=== PATIENT | female | born 1945 | race Caucasian/White ===

== ENCOUNTER → 2017-02-22 | Outpatient (CLI) | payer OTHER, BC ==
[2017-02-22 12:39] LABS: ALT/SGPT 22 U/L (12-78); AST/SGOT 11 U/L (15-37); BLOOD UREA NITROGEN 14 mg/dl (7-18); BUN/CREATININE RATIO 14.6 (10-20); CALCIUM 9.5 mg/dl (8.5-10.1); CARBON DIOXIDE 27 mmol/L (21-32); CHLORIDE 107 mmol/L (98-107); CREATININE 0.96 mg/dl (0.60-1.20); GLUCOSE 101 mg/dl (70-99); POTASSIUM 4.3 mmol/L (3.5-5.1); SODIUM 141 mmol/L (136-145)
[2017-02-22 12:42] LABS: ALB/GLOB RATIO 1.2 (0.9-2); ALKALINE PHOSPHATASE 83 U/L (45-117); CHOLESTEROL 150 mg/dl (0-200); CHOLESTEROL/HDL RATIO 3.4; HDL CHOLESTEROL 44 mg/dl; LDL CHOLESTEROL CALCULATED 65 mg/dl; TRIGLYCERIDES 206 mg/dl (0-150); VERY LOW DENSITY LIPOPROT CALC 41 mg/dl
[2017-02-22 13:03] LABS: RATIO 17.9 mcg/mg (0-30.0)
[2017-02-22 13:09] LABS: ESTIMATED AVERAGE GLUCOSE 134 mg/dl; HA1C FLAG Normal (Normal)
== END | disposition home or self-care (01) ==
LOC: C.LABPVFM 08:52
PROVIDERS: ATTEND Family Medicine
DX: I10 Essential (primary) hypertension (principal); E78.5 Hyperlipidemia, unspecified; E11.9 Type 2 diabetes mellitus without complications; E55.9 Vitamin D deficiency, unspecified; F32.9 Major depressive disorder, single episode, unspecified

== ENCOUNTER → 2018-02-27 | Outpatient (CLI) | payer OTHER, BC ==
[2018-02-27 13:27] LABS: HEMOGLOBIN A1C 6.4 % (4.5-5.6)
[2018-02-27 13:39] LABS: ALBUMIN 3.6 gm/dl (3.4-5.0); ALT/SGPT 17 U/L (12-78); AST/SGOT 12 U/L (15-37); CALCIUM 9.2 mg/dl (8.5-10.1); CARBON DIOXIDE 26 mmol/L (21-32); CREATININE 0.98 mg/dl (0.60-1.20); GLUCOSE 115 mg/dl (70-99); SODIUM 139 mmol/L (136-145)
[2018-02-27 13:42] LABS: ALKALINE PHOSPHATASE 90 U/L (45-117); CHOLESTEROL 143 mg/dl (0-200); LDL CHOLESTEROL CALCULATED 63 mg/dl; TOTAL PROTEIN 6.9 gm/dl (6.4-8.2)
[2018-02-27 13:51] LABS: BLOOD UREA NITROGEN 13 mg/dl (7-18)
== END | disposition home or self-care (01) ==
LOC: C.LABPVFM 08:24
PROVIDERS: ATTEND Family Medicine
DX: I10 Essential (primary) hypertension (principal); E78.5 Hyperlipidemia, unspecified; E11.9 Type 2 diabetes mellitus without complications; M81.0 Age-related osteoporosis without current pathological fracture; F32.9 Major depressive disorder, single episode, unspecified; E80.6 Other disorders of bilirubin metabolism

== ENCOUNTER → 2018-03-08 | Outpatient (CLI) | payer OTHER, BC ==
--- NOTE | 2018-03-08 14:59 | DIAGNOSTIC IMAGING REPORT ---
L KNEE 3 VIEWS CLINICAL HISTORY: LEFT KNEE PAIN pain COMPARISON: None. DISCUSSION: Moderate degenerative change medial joint compartment. Minimal degenerative changes lateral and patellofemoral joint compartments. No significant joint effusion. Bony mineralization is within normal limits. There is no evidence for soft tissue swelling. IMPRESSION: Minimal degenerative change. No acute process. No significant joint effusion. The above report was generated using voice recognition software. It may contain grammatical, syntax or spelling errors. Electronically signed by: Tadeo Decker M.D. 03/08/2018 2:58 PM Dictated Date/Time: 03/08/2018 2:57 PM
== END | disposition home or self-care (01) ==
LOC: C.RADPV 14:42
PROVIDERS: ATTEND Nurse Practitioner Family
DX: M25.562 Pain in left knee (principal)

== ENCOUNTER 2023-02-08 06:22 | Observation (INO) ==
--- NOTE | 2023-02-01 12:24 | Anesthesiology Consultation ---
Date of Service February 01, 2023 Assessment & Plan (1) Encounter for pre-operative examination: Chart Review Chart Review: Pending: Refer to Additional Notes / Consult section (pending response from cardio re: final cardio clearance ) and Patient NOT seen in Pre Admission Testing - Awaiting response from cardio via workload note re: previous stress test and if patient is acceptable risk for for surgery - Check BSG AM DOS - Pt is NOT an Outpatient Joint candidate -COVID screening: Per PAT nursing assessment on 02/01/23. No known COVID-19 positive contacts or current COVID-19 related symptoms. Travel screen negative. Patient vaccinated for Covid. At surgeon discretion if preop Covid testing being done. Pt seen by cardio 06/28/22= presents for preop CV evaluation prior to right TKA. Currently scheduled for 07/02/22 but patient plans to reschedule until she recovers from recent Covid infection. Pt has had increased SOB/VEGA since shaun Covid. Was have increased VEGA prior to Covid infection. Pt does not appear hypervolemic on exam today. Given her SOB, CV risk factors and upcoming surgery- it is recommended she under nuclear stress test for further evaluation. Pending the results of the stress test, patient is at an acceptable risk to proceed with knee replacement. History Surgery Operation Date: 02/08/23 08:50 Proposed Procedures p Right Total Knee Arthroplasty - [facility] Post MD Height/Weight Height: 4 ft 11 in Weight: 68.039 kg Allergies Allergy/AdvReac Type Severity Reaction Status Date / Time No Known Drug Allergies Allergy Unknown Verified 02/01/23 11:23 Medications Home Medications Medication Instructions Recorded Confirmed Last Taken blood sugar diagnostic (OneTouch #10 ea 05/16/19 12/09/22 Unknown Ultra Blue Test Strip) lancets #50 ea 05/16/19 12/09/22 Unknown cyanocobalamin (vitamin B-12) 2,500 mcg PO QAM 09/19/19 02/01/23 07/14/21 2,500 mcg tablet cholecalciferol (vitamin D3) 25 1,000 units PO QAM 05/20/21 02/01/23 07/14/21 mcg (1,000 unit) capsule ibuprofen 200 mg tablet 200 mg PO Q6H PRN Pain 06/11/22 02/01/23 Unknown phenylephrine HCl 0.5 % nasal spray 1 spray intranasal Q8H PRN 06/11/22 02/01/23 Unknown Congestion glipizide 5 mg tablet, extended 5 mg PO QAM #90 tabs 01/26/23 02/01/23 Unknown release 24 hr metformin 1,000 mg tablet 1,000 mg PO BID #180 tabs 01/26/23 02/01/23 Unknown simvastatin 80 mg tablet 80 mg PO QPM #90 tabs 01/26/23 02/01/23 Unknown lisinopril 20 mg tablet 20 mg PO QAM 02/01/23 02/01/23 Unknown Past Medical History Medical History (Updated 02/01/23 @ 12:32 by Lona Mayberry PA-C) DM type 2 (diabetes mellitus, type 2) Hearing deficit BL LIM History of COVID-19 06/15/22>STILL HAS SOME TASTE/SMELL PROBLEMS HLD (hyperlipidemia) HTN (hypertension) LBBB (left bundle branch block) Per records- pt unaware LBBB present since at least 2004 per review of previous EKGs Osteoporosis Past Family History Family History Father Arthritis Heart problem Mother Heart problem Other No family history of adverse response to anesthesia No family history of bleeding disorder Denies family history of Ovarian cancer Prostate cancer Hearing loss Heart disease Myocardial infarction Breast cancer Colorectal cancer Cancer Hypertension Stroke Asthma Past Surgical History Surgical History History of arthroscopy of right knee History of benign breast biopsy History of cataract surgery LEFT/RT History of colonoscopy History of tooth extraction History of vocal cord polypectomy Hx of carpal tunnel repair Rt Status post left breast lumpectomy (07/15/21) Left Breast Lumpectomy with Localization, Wire Dr. King 07-15-2021: LMA#4. Pt denies limb restriction. (benign) Social History Smoking Status: Former smoker tobacco type: cigarettes Do You Dip or Chew Tobacco: No Smoking End Date: 20+ YEARS AGO Hx Alcohol Use: Yes Alcohol type: beer and wine alcohol intake frequency: holidays/special occasions only substance use type: does not use Lab Results Anesthesia Preop Results Results Anesthesia Widget: WBC 8.24 K/ul (4.8-10.8) 01/06/23 Hgb 13.7 g/dl (12.0-16.0) 01/06/23 Hct 40.1 % (37.0-47.0) 01/06/23 Plt 280 K/uL (130-400) 01/06/23 Na 141 mmol/L (136-145) 01/06/23 K 3.9 mmol/L (3.5-5.1) 01/06/23 Cl 107 mmol/L (98-107) 01/06/23 CO2 27 mmol/L (21-32) 01/06/23 BUN 17 mg/dl (6-23) 01/06/23 Creat 0.90 mg/dl (0.6-1.2) 01/06/23 Glucose Level 109 mg/dl (70-99(Fasting)) H 01/06/23 PT 9.9 Seconds (9.0-12.0) 01/06/23 PTT 25.6 Seconds (21.0-31.0) 01/06/23 INR 0.9 (0.9-1.1) 01/06/23 HA1c 6.1 % (4.5-5.6) H 01/06/23 Blood Type A Positive 01/06/23 Antibody Screen NEGATIVE 01/06/23 Testing Electrocardiogram Date: 06/15/22 Sinus tachycardia, rate 109 bpm Left axis deviation LBBB Chest X-Ray Date: 06/15/22 *1view* There are low lung volumes. The cardiac silhouette is borderline enlarged. Is mildly tortuous thoracic aorta. No pleural effusions. No pneumothorax. A few b ibasilar linear densities consistent with subsegmental atelectasis. Otherwise, no focal lung consolidations to suggest pneumonia. No evidence for pulmonary edema. There is a mildly tortuous thoracic aorta. IMPRESSION: 1. Low lung volumes with a few bibasilar linear densities likely representing subsegmental atelectasis. 2. Otherwise, no focal lung consolidations to suggest pneumonia. Stress Test Date: 07/23/22 Type: nuclear Rest and stress myocardial perfusion imaging findings: 1. Mild breast attenuation, increased liver and gallbladder uptake. Good quality study. 2. Gated MPI demonstrates dyskinesis of the entire septal wall. Mild hypokinesis of the apex. The calculated EF likely overestimates true EF. Calculated EF 65%. 3. There is a medium size, mild to moderate intensity, fixed MPI defect involving the entire apex, distal anteroseptal, and distal inferior myocardium. These findings suggest prior myocardial infarction without significant adrian- infarct ischemia. 4. Moderately abnormal study. Low risk for ischemia. No prior studies for comparison.
--- NOTE | 2023-02-04 11:58 | History and Physical Report ---
CHIEF COMPLAINT: Bilateral knee pain and discomfort, right side greater than the left. HISTORY OF PRESENT ILLNESS: The patient is a 78-year-old female who presents for surgical treatment of her right knee. She has got a long history of bilateral knee pain and discomfort, right side a bi t worse than left. She was actually scheduled for surgery last year ago, but canceled due to COVID. She desired to proceed with some elective care for a period of time until she got to a point where t hings are better for her. She continues to be bothered by the pain. It is global pain. The more sh e is up and on it, the more it hurts. She has a history of a right knee scope done at [facility] in the pas t. She would like to have her knee definitively fixed with knee replacement. PAST MEDICAL HISTORY: 1. Hypertension. 2. Elevated cholesterol. 3. Diabetes with an A1c of 6.1. 4. Obesity, BMI of 30.2. PAST SURGICAL HISTORY: 1. Carpal tunnel release. 3. Right knee arthroscopy. 4. Cataract surgery. ALLERGIES: None. CURRENT MEDICATIONS: 1. Metformin. 2. Glipizide. 3. Simvastatin. 4. Lisinopril. SOCIAL HISTORY: A 78-year-old white female. Lives in [facility]. She is . Rare alcohol in take. Does not smoke. FAMILY HISTORY: Significant for heart disease. REVIEW OF SYSTEMS: Significant for diabetes. Denies any neurologic or vascular problems. No bleedi ng problems. No history of DVT or PE. PHYSICAL EXAMINATION: GENERAL: Pleasant, elderly female. Looks to be in reasonably good health. HEENT: Benign. NECK: Supple. No lymphadenopathy. LUNGS: Clear to auscultation. HEART: Has a regular rate and rhythm. ABDOMEN: Soft, nontender, nondistended. EXTREMITIES: Grossly neurovascularly intact except as follows. Examination of the right knee reveals the patient ambulates independently. She has got varus alignme nt to her knee. She is tender over the medial joint line. Small knee effusion. Range of motion abo ut 5-125. No instability. Examination of the left knee reveals slight varus alignment. She is tend er medially. Small knee effusion. Range of motion 5-125. No instability. No pain with hip motion. X-RAYS: X-rays of the right knee were reviewed. It shows advanced right knee DJD. She has got comp lete loss of medial joint space. The right side a bit worse than the left. She has subchondral scle rosis. ASSESSMENT: A 78-year-old white female with several comorbidities including hypertension, elevated c holesterol, diabetes, mild obesity with advanced bilateral knee degenerative joint disease, right thuan e more symptomatic than the left. She has failed conservative treatment and would like to have her r ight knee replaced. PLAN: We will take her to the operating room for right total knee replacement. The risks and benefi ts of this procedure were explained to the patient including, but not limited to, DVT, PE, , inf ection, neurological injury, vascular injury, bleeding problem, pain, limited range of motion, stiffn ess, failure to relieve her symptoms, incomplete relief of symptoms, etc. The patient understands an d desires to proceed. Informed consent was obtained. She will need to hold the metformin and lisinopril on the morning of surgery. She lives by herself a nd she is planning on having a friend come and stay with her during the perioperative period. Akira grant use insulin sliding scale coverage as needed. Job ID: [id number]
[~2023-02-08 06:22] MED LIST: ACETAMINOPHEN 500 MG TAB PO SCH; BUPIVACAINE LIPOSOME/PF 266 MG, BUPIVACAINE/EPINEPHRINE 50 ML, SODIUM CHLORIDE 0.9% PF ... INFIL SCH; CeleBREX 200 MG CAP PO SCH; FAMOTIDINE 20 MG TAB PO SCH; LR 500ML BOLUS, THEN 15ML/HR IV SCH; LR 60ML/HR IV SCH; METOCLOPRAMIDE HCL 10 MG TABLET PO SCH; TRANEXAMIC ACID 1,000 MG **IV Intra-op IV SCH; ceFAZolin 2000MG 2,000 MG/15 ML SYR IV SCH
[2023-02-08] MEDS ORDERED: BUPIVACAINE 0.25% PF 30 ML VIAL ONE (06:31)
[2023-02-08] MEDS ORDERED: BUPIVACAINE 0.5 % 5 MG/1 ML PF 10ML VIAL ONE (06:31)
--- NOTE | 2023-02-08 06:54 | History & Physical Bridge Note ---
Date of Service February 08, 2023 History & Physical Bridge Note I have examined the patient, reviewed the History & Physical and in the interval since the performance of the History & Physical I have noted the following changes of clinical significance: no changes noted
[2023-02-08] MEDS ORDERED: ROPIVACAINE 0.5% 5 MG/ML 30 ML VIAL ONE (07:24)
[2023-02-08] MEDS ORDERED: MIDAZOLAM HCL 1 MG/ML 2ML VIAL ONE (07:54)
[2023-02-08] MEDS ORDERED: fentaNYL citrate PF 100 MCG/2 ML VIAL ONE (07:54)
[2023-02-08] MEDS ORDERED: ePHEDrine sulfate 50 MG/ML AMP IV PRN ×2 (07:56→09:51)
[2023-02-08] MEDS ORDERED: ALBUTEROL 0.083% NEBU SOLN 3 ML VIAL INH PRN (07:56)
[2023-02-08] MEDS ORDERED: fentaNYL citrate PF 100 MCG/2 ML VIAL IV PRN (07:56)
[2023-02-08] MEDS ORDERED: ATROPINE SULFATE 0.1 MG/ML 10ML SYR IV PRN (07:56)
[2023-02-08] MEDS ORDERED: ONDANSETRON INJ 2 MG/ML 2 ML VIAL IV PRN ×2 (07:56→12:28)
[2023-02-08] MEDS ORDERED: ACETAMINOPHEN 1,000 MG/100 ML VIAL IV STA (07:56)
[2023-02-08] MEDS ORDERED: BUPIVACAINE LIPOSOME 1.3% 266 MG/20 ML VIAL ONE (08:59)
[2023-02-08] MEDS ORDERED: BUPIVACAINE/EPINEPHRINE 0.25% 1:200,000 30 ML VIAL ONE (08:59)
[2023-02-08] MEDS ORDERED: SODIUM CHLORIDE 0.9% PF 50 ML VIAL ONE (08:59)
[2023-02-08] MEDS ORDERED: MoRPHine SULFATE PF 1 MG/ML 10 ML AMP/VIAL ONE (09:33)
[2023-02-08] MEDS ORDERED: diphenhydrAMINE 50 MG/ML VIAL IV PRN (09:51)
[2023-02-08] MEDS ORDERED: NALBUPHINE HCL INJ 10 MG/ML AMP IV PRN (09:51)
[2023-02-08] MEDS ORDERED: NALOXONE HCL 0.08 MG in SYRINGE 1.8 ML IV PRN (09:51)
[2023-02-08] MEDS ORDERED: LACTATED RINGER'S 500 ML IV PRN (09:51)
[2023-02-08] MEDS ORDERED: NALOXONE HCL 1 MG in SODIUM CHLORIDE 0.9% 1000ML 1,000 ML IV PRN (09:51)
[2023-02-08] MEDS ORDERED: NALOXONE HCL 0.4 MG/1 ML VIAL/CARP IV PRN ×2 (09:51→12:28)
[2023-02-08] MEDS ORDERED: MoRPHine SULFATE PF 1 MG/ML 10 ML AMP/VIAL INT SPINAL ONE (09:51)
[2023-02-08] MEDS ORDERED: DC INTRASPINAL MORPHINE SCH (10:00)
[2023-02-08] MEDS ORDERED: NO NARCOTICS OR SEDATIVES SCH (10:00)
[2023-02-08] MEDS ORDERED: SODIUM CHLORIDE 0.9% 1000ML 1,000 ML IV SCH (10:00)
[2023-02-08] MEDS ORDERED: ONDANSETRON INJ 2 MG/ML 2 ML VIAL ONE (10:16)
[2023-02-08] MEDS ORDERED: PROPOFOL IV EMULSION 10 MG/ML 20 ML VIAL IV ONE (10:31)
--- NOTE | 2023-02-08 11:10 | Operative Report ---
[facility] Post Operative Report Pre & Post Diagnosis Operation Date: 02/08/23 08:50 Pre-Op Diagnosis: Right Knee Advanced Degenerative Joint Disease Post-Op Diagnosis: Right Knee Advanced Degenerative Joint Disease I identified the patient and participated in the time-out.: Yes Procedure Operation Date: 02/08/23 08:50 Actual Procedures p Right Total Knee Arthroplasty(Right) - [facility] MD Surgeon [facility] Post MD Operator [employer] Luis Weiss PA-C Estimated Blood Loss 50 Findings Consistent with Post-Op Diagnosis Operative findings were advanced right knee DJD. She had extensive grade 4 [id number] disease of the medial compartment.. Fairly extensive grade 3 changes the patellofemoral compartment and fairly well- preserved lateral compartment. Some occasional focal low grade 4 changes. Specimens Right knee sent for pathology Anesthesia Type Spinal MAC Complications none Disposition Accompanied Patient To Recovery: No Indications Patient 78-year-old female has had a long history of bilateral knee pain and discomfort the right side greater than left. Been to extensive conservative treatment which became less successful over time. She is actually been scheduled for an right knee replacement the past but canceled due to COVID issues. She now presents for definitive/surgical treatment. Description of Procedure Operative implants consist of: 1 Biomet Vanguard size 57.5 right posterior stabilized femoral component. 2. Biomet size 59 tibial tray. 3. 10 mm posterior stabilized polyethylene insert. 4. 28 x 8 all poly patella. The patient was taken to the operating room, identified, placed on the operating table supine position but all contact areas were properly padded. IV antibiotics tried by anesthesia team. A spinal anesthetic was implemented by the anesthesia team in the OR. And abductor canal block had provided outside in the holding area. A Hurd catheter was placed in sterile fashion. Right thigh turn was then placed in the right lower extremities then prepped and draped in usual sterile fashion. The right leg was elevated exsanguinated with use of an Esmarch and a tourniquet was placed at 300 mmHg. An anterior approach of the right knee was then performed to longitudinal incision centered over the patella. Sharp dissection scalp through subcutaneous tissue down to level the extensor mechanism. Medial parapatellar arthrotomy incision was made. Some subperiosteal dissection was carried out medially. The fat pad was dissected from Neath patella tendon. The lateral patellofemoral ligament was released. Patella subluxated laterally and the knee was flexed. The osteophytes taken off distal femur. The ACL and PCL were then released from the distal femur and the tibia subluxated anteriorly. The external tibial alignment jig was then placed in the interface the tibia and adjusted 14 mm medially. Proximal tibial cut was made removed about a millimeter bone from most deficient aspect medial tibial plateau. The tibia was sized to a size 59. Some osteophytes taken off medial and posterior medially. Attention drawn the femur. The distal femur was entered with a sharp drop with intramedullary canal was suction. Right 5 degree valgus cutting guide was placed. Distal femoral cutting block was pinned in place. Distal femoral cut was made to take an additional 3 mm bone off distal femur. The femur was then sized to a size 57.5. The AP cutting block was pinned parallel to the epicondylar axis which was 3 degrees. The anterior cut, anterior chamfer, posterior cut, posterior chamfer cuts were made. The box cutting guide was placed in a just slight lateral and the box cut was made. The knee was flexed. The remnants of the medial and lateral menisci were excised. The osteophytes taken off the posterior aspect the femur. A trial femoral component was placed. Tibial tray was pinned in maximum external rotation and drill and stem punch used to create defect in proximal tibia for the tibial tray. Knee was then trialed and the 10 mm insert fit most appropriately. Attention drawn the patella. The patella was cleaned of all soft tissues. Patella thickness measured 18 mm in thickness was cut down to 12. It was sized to a size 28 patella. The lug holes were drilled for the 28 patella. Lateral osteophytes removed. Patella button was placed. Knee was taken through range of motion and the patella tracked nicely with no thumbs test. Attention drawn to place the permanent components. Nupathe all trial components were removed. Bone plug was placed in the distal femur limit blood loss. Double batch Palacos G cement was mixed A Biomet [employer] Interns[employer] size 57.5 right posterior stabilized femoral component, size 59 tibial tray, 10 mm posterior stabilized polyethylene insert, and a 28 x 8 all poly patella then cemented in place. Knee was brought out in full extension till cement hardened. Final cement check was then performed. The pericapsular tissues were injected with total 100 cc of combination of 20 cc of Exparel, 30 cc normal saline, 50 cc of quarter percent Marcaine with epinephrine. Patient did receive 1 g tranexamic acid. The tourniquet was then let down for final tourniquet time of 50 minutes. Hemostasis assured use electrocautery. Extensor mechanism closed with combination 1 PDS suture #1 Vicryl suture in [id number] fashion. Extensor mechanism checked found to be intact the subcutaneous tissue then closed with 2 Dexon suture in a buried interrupted fashion skin was closed skin taniya. Leg was then cleaned and dried and sterile dressing was Xeroform, 4 fours, sterile cast padding, Jorge bandage were applied. Patient then transferred to the recovery room in stable condition. Patient tolerated the procedure well and there were no complications. Luis Weiss, my physician rehabilitation assistant, was present for the entire procedure. His assistance was essential and required for appropriate patient positioning, prepping and draping, surgical exposure, performing the technical details of the operation, placement the implants, closure of the wound, and placement of the sterile bandage. I attest to the content of the Intraoperative Record and any orders documented therein. Any exceptions are noted below.
--- NOTE | 2023-02-08 11:56 | XRay Report ---
TWO VIEWS RIGHT KNEE CLINICAL HISTORY: Postoperative examination. FINDINGS: AP and crosstable lateral portable views of the right knee are obtained. A right knee arthr oplasty is in near anatomic alignment. There has been undersurface remodeling of the patella. No acut e fracture is seen. There are expected postoperative changes around the knee including skin clips, so ft tissue edema, and subcutaneous gas. IMPRESSION: Expected postoperative changes status post right knee arthroplasty. No acute fracture is seen. ACT 112: Negative or not required by law. Electronically signed by: Steven Balderas M.D. 02/08/2023 11:55 AM
[2023-02-08] MEDS ORDERED: bisacodyL 10 MG SUPP PR PRN (12:28)
[2023-02-08] MEDS ORDERED: GLUCAGON FOR INJ 1 MG VIAL SQ PRN (12:28)
[2023-02-08] MEDS ORDERED: DEXTROSE 50% 50 ML SYRINGE IV PRN (12:28)
[2023-02-08] MEDS ORDERED: METOCLOPRAMIDE HCL INJ 5 MG/ML 2 ML VIAL IV PRN (12:28)
[2023-02-08] MEDS ORDERED: GLUCOSE 40% GEL 15 GM TUBE PO PRN (12:28)
[2023-02-08] MEDS ORDERED: ALUMINUM/MAGNESIUM SUSP 30 ML UDC PO PRN (12:28)
[2023-02-08] MEDS ORDERED: [UNRECOGNIZED DRUG - REMARK] INTNAS PRN (12:28)
[2023-02-08] MEDS ORDERED: GLUCOSE 10 TAB/TUBE PO PRN (12:28)
[2023-02-08] MEDS ORDERED: MAGNESIUM HYDROXIDE SUSP 30 ML UDC PO PRN (12:28)
[2023-02-08] MEDS ORDERED: PHARMACY GLYCEMIC MGMT CONSULT PRN (12:28)
[2023-02-08] MEDS ORDERED: CARBOHYDRATES FOR HYPOGLYCEMIA PO PRN (12:28)
--- NOTE | 2023-02-08 12:28 | Anesthesiology Progress Note ---
Date of Service February 08, 2023 Anesthesia Post Procedure Vital Signs Vital Signs: Temp Pulse Pulse Resp BP Pulse Ox O2 Del Method 02/08/23 12:10 36.5 C 89 12 115/64 97 Nasal Cannula 02/08/23 12:00 36.5 C 89 12 115/59 L 92 Room Air 02/08/23 11:50 88 12 121/60 97 Oxymask 02/08/23 11:30 89 9 L 116/58 L 97 Oxymask 02/08/23 11:40 88 11 L 120/58 L 97 Oxymask 02/08/23 11:20 87 11 L 114/56 L 97 Oxymask 02/08/23 11:10 36.5 C 89 14 113/59 L 96 Oxymask 02/08/23 07:03 36.9 C 95 H 20 152/82 H 95 Room Air O2 Flow Rate 02/08/23 12:10 2 02/08/23 12:00 02/08/23 11:50 2 02/08/23 11:30 5 02/08/23 11:40 3 02/08/23 11:20 5 02/08/23 11:10 7 02/08/23 07:03 Transfer of Care Handoff Completed per policy Notes Mental Status: alert / awake / arousable Patient Amnestic to Procedure: Yes Nausea / Vomiting: adequately controlled Pain: adequately controlled Airway Patency, RR, SpO2: stable & adequate BP & HR: stable & adequate Hydration State: stable & adequate Neuraxial Anesthesia: was administered and sensory block is resolving Anesthetic Complications: no major complications apparent and Pt Satisfied with anesthetic care
[2023-02-08] MEDS: SODIUM CHLORIDE 0.9% 1000ML 1,000 ML IV SCH ×2 (12:54→22:45)
--- NOTE | 2023-02-08 13:58 | Pharmacy Report ---
Pharmacy Glycemic Short Note 2 - Date of Service February 08, 2023 - Glycemic Short BSG Results (Last 24 hours): 02/08/23 02/08/23 06:54 11:13 POC Glucose 138 H 112 H OUTPATIENT ANTIDIABETIC REGIMEN: * glipizide xr 5 mg PO daily * metformin 1 gm PO BID * HbA1C = 6.1% (01/06/23) ASSESSMENT: * Ms Lanza is a 78 y/o F with a PMH Of T2DM on two oral medications who presents for R knee replacement. No documentation of steroids used during surgery. Patient had intraspinal morphine. She has N/V postop. * Preop BSG were 138 and postop was 112 mg/dL. * Since patient has postop N/V and fasting BSG < 140 mg/dL and no steroids, will hold on basal insulin. * Novolog weight-based stress of 3 since patient on two oral agents. * Hold oral agents. PLAN FOR INPATIENT GLYCEMIC CONTROL: * Hold outpatient oral diabetes medications * Basal insulin * HOLD * Bolus insulin * NovoLog per scale ACHS or Q6hrs while NPO * Goal Range: Low 110 mg/dL - High 140 mg/dL * Correction Factor: 25 mg/dL/unit * Nutritional / Prandial insulin per carb ratio of 1 unit per 8 grams CHO consumed
[2023-02-08] MEDS: INSULIN ASPART PER UNIT CHARGE SC SCH ×3 (14:12→20:27)
[2023-02-08] MEDS: KETOROLAC TROMETHAMINE 15 MG/ML VIAL IV SCH ×2 (15:06→20:25)
[2023-02-08] MEDS: ASCORBIC ACID 500 MG TAB PO SCH (17:12)
[2023-02-08] MEDS: ceFAZolin 1000MG 1,000 MG/7.5 ML SYR IV SCH (17:12)
[2023-02-08] MEDS ORDERED: TRANEXAMIC ACID / 0.7% NACL 1,000 MG/100 ML BAG IV SCH (17:15)
[2023-02-08] MEDS: DOCUSATE SODIUM 100 MG CAP PO SCH (20:24)
[2023-02-08] MEDS: SENNA 8.6 MG TAB PO SCH (20:24)
[2023-02-08] MEDS: ASPIRIN 81 MG ECTAB PO SCH (20:24)
[2023-02-08] MEDS: ACETAMINOPHEN 500 MG TAB PO SCH (20:25)
[2023-02-08] MEDS ORDERED: SENNA 8.6 MG TAB PO SCH (21:00)
[2023-02-08] MEDS ORDERED: SIMVASTATIN 80 MG TAB PO SCH (21:00)
[2023-02-09] MEDS: KETOROLAC TROMETHAMINE 15 MG/ML VIAL IV SCH ×2 (01:40→08:43)
[2023-02-09] MEDS: ceFAZolin 1000MG 1,000 MG/7.5 ML SYR IV SCH (01:40)
[2023-02-09] MEDS ORDERED: HYDROmorphone INJ 0.5 MG/0.5 ML SYR IV PRN (03:51)
[2023-02-09] MEDS ORDERED: oxyCODONE HCL IR 5 MG TAB (IMMEDIATE RELEASE) PO PRN (03:51)
[2023-02-09 06:57] LABS: Hematocrit (blood only) 33.6 % (37.0-47.0); Hemoglobin 11.6 g/dl (12.0-16.0); Mean Corpuscular Hemoglobin 31.5 pg (25.0-34.0); Mean Corpuscular Hgb Conc 34.5 g/dL (32.0-36.0); Mean Corpuscular Volume 91.3 fL (80.0-100.0); Mean Platelet Volume 9.9 fL (9.4-12.4); Platelet Count 238 K/uL (130-400); RDW Coefficient of Variation 12.6 % (11.5-14.5); RDW Standard Deviation 41.9 fL (36.4-46.3); Red Blood Count 3.68 M/uL (4.20-5.40); White Blood Count 10.08 K/ul (4.8-10.8)
[2023-02-09 07:16] LABS: BUN Creatinine Ratio 15.4 (10-20); Calcium 8.8 mg/dl (8.6-10.3); Creatinine Clr Calc Pharmacy 49.8 ml/min; Est GFR (African American) 83.8 ml/min; Est GFR (Non-African American) 72.3 ml/min; Potassium 4.1 mmol/L (3.5-5.1)
[2023-02-09] MEDS: INSULIN ASPART PER UNIT CHARGE SC SCH (07:52)
[2023-02-09] MEDS: ASPIRIN 81 MG ECTAB PO SCH (08:43)
[2023-02-09] MEDS: DOCUSATE SODIUM 100 MG CAP PO SCH (08:43)
[2023-02-09] MEDS: SENNA 8.6 MG TAB PO SCH (08:44)
[2023-02-09] MEDS: ASCORBIC ACID 500 MG TAB PO SCH (08:45)
[2023-02-09] MEDS: ACETAMINOPHEN 500 MG TAB PO SCH (08:45)
[2023-02-09] MEDS ORDERED: lisinopril 20 MG TAB PO SCH (09:00)
[2023-02-09] MEDS ORDERED: CYANOCOBALAMIN (B-12) 2,500 MCG TABLET PO SCH (09:00)
[2023-02-09] MEDS ORDERED: CHOLECALCIFEROL 1,000 UNITS 25 MCG TAB PO SCH (09:00)
[2023-02-09] MEDS ORDERED: MULTIVITAMIN TAB PO SCH (09:00)
--- NOTE | 2023-02-09 14:04 | Progress Notes ---
SUBJECTIVE: A 78-year-old white female postoperative day 1 from a right knee replacement. She is do ing much better today. She was really nauseated last night, but much improved today. Pain is contro lled. No chest pain or shortness of breath. Not feeling dizzy or lightheaded. Hoping to go home. OBJECTIVE: VITAL SIGNS: Temperature is 36.9. Vital signs are stable. GENERAL: Physical examination shows a pleasant, elderly female. She is sitting up in her bedside ch air and looks comfortable. LUNGS: Clear to auscultation. HEART: Has a regular rate and rhythm. ABDOMEN: Soft, nontender, nondistended. EXTREMITIES: Grossly neurovascularly intact except as follows. Examination of the right leg reveals the dressing to be clean, dry and intact. She can dorsiflex and plantarflex her foot appropriately. She is neurologically intact. She can do a straight leg raise. LABORATORY DATA: Hemoglobin 11.6. Hematocrit 33.6. Electrolytes are stable. ASSESSMENT: A 78-year-old white female postoperative day 1 from right knee replacement, doing pretty well. Had a bit of postoperative nausea, but this has resolved. Her pain is controlled. She is ne urologically intact. Hoping to go home. She has a friend who is going to stay with her. PLAN: 1. DVT prophylaxis including thigh-high TEDs, SCDs, and aspirin twice a day. 2. PT/OT. She can fully weightbear as tolerated. Right total knee protocol. 3. Pain control, doing okay with current pain regimen. 4. Disposition: Plan to discharge to home with some home health. She has a friend who is going to stay with her as well. Job ID: [id number]
== END 2023-02-09 12:37 | disposition home health service (06) ==
LOC: 3E 06:22 → ASU 06:22